=== PATIENT | male | born 1955 | race African-American/Black ===

== ENCOUNTER 2019-05-07 01:06 | Emergency (ER) | payer OTHER ==
[~2019-05-07] VITALS: Ht 170.2 cm; Wt 77.1 kg
[2019-05-07 01:12] VITALS: BP 215/100
--- NOTE | 2019-05-07 01:12 | NUR ---
ED Nurse Note: Pt BIBA from home CO severe nosebleed that occured while pt was sleeping. Pt VS 215/100, HR 69, SPO2 98% RA, RR 22, aao x 4. Pt reports hx of HTN. Pt denies n/v/fever. Pt denies any additional previous medical hx. ERMD aware. Awaiting ERMD at bedside
[2019-05-07] MEDS ORDERED: ASPIR 8181 MG ORAL (01:20)
[2019-05-07] MEDS ORDERED: MULTI VITAMIN1 EACH ORAL (01:20)
[2019-05-07] MEDS ORDERED: LOSARTAN POTASS50 MG ORAL (01:20)
[2019-05-07] MEDS ORDERED: ZANTAC150 MG ORAL (01:20)
[2019-05-07] MEDS ORDERED: OYSCO 500+D TA1 EAC1 PO (01:21)
[2019-05-07] MEDS ORDERED: ATORVASTATIN CA80 MG ORAL (01:22)
[2019-05-07] MEDS ORDERED: AMLODIPINE BESY10 MG ORAL (01:23)
[2019-05-07] MEDS ORDERED: drisdol PO (01:24)
[2019-05-07] MEDS ORDERED: ALBUTEROL2.5 MG/3 M INH (01:24)
--- NOTE | 2019-05-07 01:24 | NUR ---
ED Nurse Note: ERMD at bedside
[2019-05-07] MEDS ORDERED: Oxymetazoline 0.05% Na Spray 30ml NASAL ONE (01:30)
[2019-05-07] MEDS ORDERED: Silver Nitrate Stick TOPIC ONE (01:30)
--- NOTE | 2019-05-07 01:32 | NUR ---
ED Nurse Note: RT at bedside
[2019-05-07 01:45] VITALS: BP 185/99
--- NOTE | 2019-05-07 01:50 | NUR ---
ED Nurse Note: Nosebleed has stopped, ERMD aware. PT resting in bed, will continue to monitor, no s/s of distress noted.
--- NOTE | 2019-05-07 02:06 | Emergency Room Report ---
History of Present Illness General Chief Complaint: Nosebleed Source: Patient Present Illness HPI 64-year-old male prior to arrival had nosebleed, with clot formation, he has a history of hypertension, hyperlipidemia, he takes aspirin, no known aggravating relieving factors severity is moderate, constant patient presents for continued nosebleeding Allergies: Coded Allergies: No Known Allergies (Unverified , 05/07/19) Patient History Past Medical History: see triage record Reviewed Nursing Documentation: PMH: Agreed; PSxH: Agreed Nursing Documentation-PMH Hx Hypertension: Yes Review of Systems All Other Systems: negative except mentioned in HPI Physical Exam Vital Signs Date Time Temp Pulse Resp B/P (MAP) Pulse Ox O2 Delivery O2 Flow Rate FiO2 05/07/19 01:08 97.9 60 18 245/105 (151) 97 Room Air General Appearance: well appearing, no apparent distress Head: normocephalic, atraumatic Eyes: bilateral eye PERRL, bilateral eye EOMI ENT: hearing grossly normal, normal voice, other - Blood in the nares, no obvious source Neck: full range of motion, supple Respiratory: no respiratory distress, speaking full sentences Musculoskeletal: no calf tenderness Neurologic: alert, normal gait Psychiatric: mood/affect normal Skin: no rash Medical Decision Making Diagnostic Impression: Primary Impression: Epistaxis ER Course 64-year-old male presents with epistaxis, patient counseled on how to hold pressure of the nose, patient was pushing on the bony aspect, Afrin was squeezed in, patient had some mild bleeding, TXA nebulized was also utilized given the fact that patient is on aspirin Patient will be discharged because bleeding has stopped Last Vital Signs Date Time Temp Pulse Resp B/P (MAP) Pulse Ox O2 Delivery O2 Flow Rate FiO2 05/07/19 01:08 97.9 60 18 245/105 (151) 97 Room Air Disposition: HOME, SELF-CARE Condition: Stable Referrals: [facility]. [facility] Patient Instructions: Nosebleed, [id number] Additional Instructions: The patient was provided with discharge instructions, notified to follow-up with a primary care doctor and or specialist in the next 24-48 hours, and to return to the ED if they have worsening of their symptoms. Please note that this report is being documented using [employer] technology. This can lead to erroneous entry secondary to incorrect interpretation by the dictating instrument. Titus Montoya MD May 07, 2019 02:06
[2019-05-07 02:20] VITALS: BP 178/95
[2019-05-07 02:38] VITALS: BP 178/95
--- NOTE | 2019-05-07 02:38 | NUR ---
ER DISCHARGE NOTE: Patient is cleared to be discharged home per ERMD, pt is aox4, on room air, with stable vital signs. pt was given dc instructions, pt was able to verbalize understanding, pt id band removed. pt is able to ambulate with steady gait. pt took all belongings.
== END 2019-05-07 02:38 | disposition home or self-care (01) ==
LOC: EDBD 01:06 → EMR 02:38
DX: R04.0 Epistaxis (principal); I10 Essential (primary) hypertension; E78.5 Hyperlipidemia, unspecified; Z79.82 Long term (current) use of aspirin
CPT/HCPCS: 99282